=== PATIENT | female | born 2000 | race Caucasian/White ===

== ENCOUNTER 2019-04-08 20:10 | Emergency (ER) | payer BC ==
[~2019-04-08] VITALS: Ht 162.6 cm; Wt 95.3 kg
[2019-04-08 20:15] VITALS: BP_SYST 150
--- NOTE | 2019-04-08 21:22 | NUR ---
Patient to ER [facility]/ ambulance [facility] to [facility] for evaluation. Side rails up. Report given to Sergio CLEVELAND.
--- NOTE | 2019-04-08 21:25 | NUR ---
Patient to [facility] for evaluation. Side rails up.
--- NOTE | 2019-04-08 21:26 | NUR ---
Dr. Ovi harden for pt eval
--- NOTE | 2019-04-08 21:27 | NUR ---
Pt BIBA to ED C/O 2 week history of gradual onset, mild, constant left ankle pain status-post mechanical slip and fall. Pain is associated with swelling. Patient is taking Ibuprofen with alleviation. Patient was recently discharged from correction No other complaints VSS no s/s of acute distress Resting on hallway [email or web address] rails up
[2019-04-08] MEDS ORDERED: KETOROLAC TROMETHAMINE 60 MG/2 ML VIAL IM ONE (21:30)
[2019-04-08 21:40] VITALS: BP_SYST 128
--- NOTE | 2019-04-08 21:40 | NUR ---
Patient given written and verbal discharge instructions and verbalizes understanding. ER MD discussed with patient the results and treatment provided. Patient in stable condition. ID arm band removed. Patient educated on pain management and to follow up with PMD. Pain Scale 0/10 Opportunity for questions provided and answered.
== END 2019-04-08 21:40 | disposition home or self-care (01) ==
LOC: SED 20:10
DX: S93.402A Sprain of unspecified ligament of left ankle, initial encounter (principal); W01.0XXA Fall on same level from slipping, tripping and stumbling without subsequent striking against object, initial encounter; Y93.89 Activity, other specified; Y92.89 Other specified places as the place of occurrence of the external cause; Y99.8 Other external cause status
CPT/HCPCS: 73610; 96372; 99283; J1885